=== PATIENT | female | born 1960 | race Two or more races ===

== ENCOUNTER 2017-11-09 04:06 | Emergency (ER) | payer MEDICAID ==
[~2017-11-09] VITALS: Ht 162.6 cm; Wt 90.7 kg
--- NOTE | 2017-11-09 04:53 | NUR ---
Pt ambulated to room with steady shuffled gait. Pt c/o low back pain. Sts she's had it for about a month but for the last two days it has gotten worse. Sts the pain woke her up. Pt resting in position of comfort for self, awaiting further eval. Daughter at bedside.
--- NOTE | 2017-11-09 05:26 | NUR ---
Pt seen by Dr. Hubbard. Pt stable for discharge per MD. PT given ACI. Pt verbalized understanding of dc instructions. Pt ambulated out of ER with steady gait and ride home.
[2017-11-09] MEDS ORDERED: IBUPROFEN 800 MG TABLET PO ONE (05:30)
[2017-11-09] MEDS ORDERED: IBUPROFEN 800 MG TABLET ONE (05:40)
[2017-11-09 06:12] VITALS: BP 155/99
== END 2017-11-09 05:26 | disposition home or self-care (01) ==
LOC: ER 04:06
DX: M54.5 Low back pain (principal)
CPT/HCPCS: A4663